=== PATIENT | female | born 1980 | race Caucasian/White ===

== ENCOUNTER 2016-09-30 06:19 | Inpatient (IN) | payer BC ==
[2016-09-30 07:31] LABS: Hematocrit 33 % (35-47); Hemoglobin 11.2 g/dl (12.0-16.0); Mean Corpuscular HGB Conc 34 g/dl (31-36); Mean Corpuscular Hemoglobin 32 pg (27-31); Mean Corpuscular Volume 94 fL (80-97); Mean Platelet Volume 6 um3 (7.4-10.4); Red Cell Distribution Width 14 % (10.5-15); White Blood Count 16.1 10^3/ul (3.5-10.8)
[2016-09-30] MEDS ORDERED: Dibucaine 1% 28.35 GM TUBE PR PRN (08:36)
[2016-09-30] MEDS ORDERED: Witch Hazel PAD* JAR TOPICAL PRN (08:36)
[2016-09-30] MEDS ORDERED: Acetaminophen TAB* 325 MG PO PRN (08:36)
[2016-09-30] MEDS ORDERED: oxyCODONE/Acetamin 5/325 MG* TAB PO PRN (08:36)
[2016-09-30] MEDS: Docusate CAP* 100 MG PO SCH ×3 (10:01→21:06)
[2016-09-30] MEDS: Ibuprofen TAB* 600 MG PO PRN ×3 (10:01→21:46)
[2016-10-01 06:56] LABS: Hematocrit 32 % (35-47); Hemoglobin 10.8 g/dl (12.0-16.0); Mean Corpuscular HGB Conc 34 g/dl (31-36); Mean Corpuscular Hemoglobin 32 pg (27-31); Mean Corpuscular Volume 95 fL (80-97); Mean Platelet Volume 7 um3 (7.4-10.4); Red Blood Count 3.37 10^6/ul (4.0-5.4); Red Cell Distribution Width 14 % (10.5-15); White Blood Count 15.5 10^3/ul (3.5-10.8)
[2016-10-01] MEDS: Ibuprofen TAB* 600 MG PO PRN (07:45)
[2016-10-01 07:56] VITALS: BP 94/53
[2016-10-01] MEDS ORDERED: Ferrous Gluconate TAB* 324 MG TAB PO SCH (09:00)
[2016-10-01] MEDS: Docusate CAP* 100 MG PO SCH (09:02)
== END 2016-10-01 13:22 | disposition home or self-care (01) | DRG 560 ==
LOC: MCHOBOUT 06:19 → MCHOB 06:34
PROVIDERS: ADMIT Nurse Practitioner; ATTEND Nurse Practitioner
PROC: 10E0XZZ Delivery of Products of Conception, External Approach (ICD-10-PCS; principal; 2016-09-30)
PROC: 0KQM0ZZ Repair Perineum Muscle, Open Approach (ICD-10-PCS; 2016-09-30)
DX: O48.0 Post-term pregnancy (principal); O99.344 Other mental disorders complicating childbirth; F32.9 Major depressive disorder, single episode, unspecified; O99.334 Smoking (tobacco) complicating childbirth; F17.210 Nicotine dependence, cigarettes, uncomplicated; Z37.0 Single live birth; F41.9 Anxiety disorder, unspecified; Z3A.40 40 weeks gestation of pregnancy; O70.1 Second degree perineal laceration during delivery
CPT/HCPCS: 36415; 85025; 86850; 86900; 86901; A9270-GY